=== PATIENT | female | born 1985 | race Two or more races ===

== ENCOUNTER 2021-12-01 13:05 | Emergency (ER) | payer OTHER ==
[~2021-12-01] VITALS: Ht 152.4 cm; Wt 58.5 kg
[2021-12-01] MEDS ORDERED: ATIVAN1 M1 PO (13:13)
[2021-12-01] MEDS ORDERED: DEPAKOTE ER500 MG PO (13:13)
[2021-12-01] MEDS ORDERED: SEROQUEL25 MG PO (13:14)
== END 2021-12-01 16:10 | disposition home or self-care (01) ==
LOC: ER 13:05
DX: S93.601A Unspecified sprain of right foot, initial encounter (principal); Q02 Microcephaly; F88 Other disorders of psychological development

== ENCOUNTER 2023-09-13 16:47 | Emergency (ER) | payer OTHER ==
[~2023-09-13] VITALS: Ht 152.4 cm; Wt 37.6 kg
[~2023-09-13 16:47] MED LIST: ATIVAN1 M1 PO; DEPAKOTE ER500 MG PO; SEROQUEL25 MG PO
[2023-09-13] MEDS ORDERED: TRAZODONE HCL150 MG (18:00)
[2023-09-13] MEDS ORDERED: CLINDAMYCIN PHOSPHATE 150 MG/ML (600mg) IM ONE (18:30)
== END 2023-09-13 18:48 | disposition home or self-care (01) ==
LOC: ER 16:47
DX: S71.152A Open bite, left thigh, initial encounter (principal); W54.0XXA Bitten by dog, initial encounter; Y93.9 Activity, unspecified; Y92.89 Other specified places as the place of occurrence of the external cause; Q02 Microcephaly; Z87.09 Personal history of other diseases of the respiratory system